=== PATIENT | female | born 1990 | race Caucasian/White ===

== ENCOUNTER 2016-08-14 09:54 | Emergency (ER) | payer SELFPAY ==
[2016-08-14 10:02] VITALS: BP 146/80
[2016-08-14] MEDS ORDERED: NAPR500T3 PO (10:10)
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
== END 2016-08-14 10:30 | disposition home or self-care (01) ==
LOC: ER 09:54
DX: S90.01XA Contusion of right ankle, initial encounter (principal); Z88.2 Allergy status to sulfonamides; V49.49XA Driver injured in collision with other motor vehicles in traffic accident, initial encounter; Y93.89 Activity, other specified; Y92.89 Other specified places as the place of occurrence of the external cause; Y99.8 Other external cause status
CPT/HCPCS: 99283